=== PATIENT | male | born 1960 | race Caucasian/White ===

== ENCOUNTER 2017-10-22 11:32 | Observation (INO) | payer BC ==
[2017-10-22 12:22] LABS: ABS Basophils 0.1 10^3/ul (0-0.2); ABS Eosinophils 0.2 10^3/ul (0-0.6); ABS Lymphocytes 1.7 10^3/ul (1.0-4.8); ABS Monocytes 0.6 10^3/ul (0-0.8); ABS Neutrophils 3.8 10^3/ul (1.5-7.7); ABS Nucleated RBC 0 10^3/ul; Eosinophil % 3.1 % (0-6); Hematocrit 37 % (42-52); Hemoglobin 12.5 g/dl (14.0-18.0); Lymphocyte % 27.2 % (25-47); Mean Corpuscular HGB Conc 34 g/dl (31-36); Mean Corpuscular Hemoglobin 30 pg (27-31); Mean Corpuscular Volume 89 fL (80-94); Mean Platelet Volume 8 um3 (7.4-10.4); Nucleated Red Blood Cells % 0; Platelet Count 306 10^3/ul (150-450); Red Blood Count 4.13 10^6/ul (4.0-5.4); Red Cell Distribution Width 14 % (10.5-15); White Blood Count 6.4 10^3/ul (3.5-10.8)
[2017-10-22] MEDS ORDERED: Nitroglycerin TAB 0.4 MG* 0.4 MG TAB SL ONE (12:30)
--- NOTE | 2017-10-22 12:50 | RAD ---
Indication: LEFT side chest pain since this morning. Elevated blood pressure. Comparison: June 25, 2014 CT. Technique: Upright AP 1226 hours Report: Lung volumes appear elevated. No pulmonary infiltrate, focal pulmonary lesion, pleural effusion, pneumothorax. Upper normal heart size. Unremarkable central pulmonary vasculature and mediastinal contours. IMPRESSION: Elevated lung volumes suggest potential obstructive lung disease. No acute cardiopulmonary process evident.
[2017-10-22 13:12] LABS: EGFR Non-African American 67.6 (>60)
[2017-10-22 14:03] LABS: Urine Appearance Clear; Urine Blood Negative (Negative); Urine Color Straw; Urine Ketones Negative (Negative); Urine Protein Negative (Negative); Urine Specific Gravity 1.013 (1.010-1.030); Urine Urobilinogen Negative (Negative)
[2017-10-22] MEDS ORDERED: Metoprolol Tartrate IV* 1 MG/ML 5 ML VIAL IV ONE (14:22)
[2017-10-22] MEDS ORDERED: Ondansetron INJ* 2 MG/ML VIAL IV PRN (14:24)
[2017-10-22] MEDS ORDERED: Acetaminophen TAB* 325 MG PO PRN (14:24)
[2017-10-22] MEDS ORDERED: oxyCODONE/Acetamin 10/325(NF) TAB PO PRN (14:27)
--- NOTE | 2017-10-22 15:46 | ED ---
Sandy Salas Nilda, scribed for Amarjit Sparrow MD on 10/22/17 at 1203 . HPI Chest Pain - HPI Summary HPI Summary: This patient is a 56 year old M presenting to [facility] accompanied by with a chief complaint of sudden onset intermittent left CP (pressure) since 929 this morning. Pt states he was doing heavy lifting at work when pain began. The patient rates the current pain 2/10 in severity, but it was initially 7/10. Symptoms aggravated by exertion and alleviated by rest. Patient reports diaphoresis (resolved), but denies dizziness, N/V, and SOB. Pt states he had stress test a few years ago. Medications include Amlodipine 7 mg. Pt states he took 2 tablets ASA today. PMHx includes HTN. - History of Current Complaint Chief Complaint: EDChestPainROMI Time Seen by Provider: 10/22/17 11:47 Hx Obtained From: Patient Onset/Duration: Started Hours Ago, Still Present Time of Onset: 09:30 Timing: Intermittent Current Severity: Moderate Pain Intensity: 7 Pain Scale Used: 0-10 Numeric Chest Pain Location: Left Lateral Chest Pain Radiates: No Character: Pressure/Squeezing Aggravating Factor(s): Exertion Alleviating Factor(s): Rest Associated Signs and Symptoms: Positive: Other: - diaphoresis (resolved), but denies dizziness, N/V, and SOB. - Allergy/Home Medications Allergies/Adverse Reactions: Allergies Allergy/AdvReac Type Severity Reaction Status Date / Time No Known Allergies Allergy Verified 06/25/14 17:31 Home Medications: Home Medications oxyCODONE/Acetamin 10/325(NF) [Percocet 10/325 (NF)] 1 tab PO QID PRN 10/22/17 [ History Confirmed 10/22/17] PMH/Surg Hx/FS Hx/Imm Hx Endocrine/Hematology History: Denies: Hx Diabetes Cardiovascular History: Reports: Hx Angina, Hx Hypertension Denies: Hx Congestive Heart Failure Respiratory History: Denies: Hx Asthma, Hx Chronic Obstructive Pulmonary Disease (COPD) Musculoskeletal History: Reports: Hx Arthritis - L knee Infectious Disease History: No Infectious Disease History: Denies: Traveled Outside the [place] in Last 30 Days - Family History Known Family History: Negative: Cardiac Disease, Hypertension - Social History Occupation: Employed Full-time Lives: With Family Alcohol Use: None Substance Use Type: Reports: None Smoking Status (MU): Never Smoked Tobacco Review of Systems Positive: Skin Diaphoresis - resolved Positive: Chest Pain Negative: Shortness Of Breath Negative: Vomiting, Nausea Neurological: Other - negative dizziness All Other Systems Reviewed And Are Negative: Yes Physical Exam - Summary Physical Exam Summary: VITAL SIGNS: Reviewed. GENERAL: Patient is a well-developed and nourished male who is lying comfortable in the stretcher. Patient is not in any acute respiratory distress. HEAD AND FACE: No signs of trauma. No ecchymosis, hematomas or skull depressions. No sinus tenderness. EYES: PERRLA, EOMI x 2, No injected conjunctiva, no nystagmus. EARS: Hearing grossly intact. Ear canals and tympanic membranes are within normal limits. MOUTH: Oropharynx within normal limits. NECK: Supple, trachea is midline, no adenopathy, no JVD, no carotid bruit, no c- spine tenderness, neck with full ROM. CHEST: Symmetric, no tenderness at palpation LUNGS: Clear to auscultation bilaterally. No wheezing or crackles. CVS: Regular rate and rhythm, S1 and S2 present, no murmurs or gallops appreciated. ABDOMEN: Soft, non-tender. No signs of distention. No rebound no guarding, and no masses palpated. Bowel sounds are normal. EXTREMITIES: FROM in all major joints, no edema, no cyanosis or clubbing. NEURO: Alert and oriented x 3. No acute neurological deficits. Speech is normal and follows commands. SKIN: Dry and warm Triage Information Reviewed: Yes Vital Signs On Initial Exam: Initial Vitals Temp Pulse Resp BP Pulse Ox 99.1 F 89 18 200/113 99 10/22/17 11:35 10/22/17 11:35 10/22/17 11:35 10/22/17 11:35 10/22/17 11:35 Vital Signs Reviewed: Yes Diagnostics - Vital Signs Vital Signs Temp Pulse Resp BP Pulse Ox 10/22/17 11:35 99.1 F 89 18 200/113 99 - Laboratory Lab Results: Lab Results 10/22/17 10/22/17 10/22/17 Range/Units 12:11 12:11 12:11 WBC (3.5-10.8) 10^3/ul RBC (4.0-5.4) 10^6/ul Hgb (14.0-18.0) g/dl Hct (42-52) % MCV (80-94) fL MCH (27-31) pg MCHC (31-36) g/dl RDW (10.5-15) % Plt Count (150-450) 10^3/ul MPV (7.4-10.4) um3 Neut % (Auto) (38-83) % Lymph % (Auto) (25-47) % Major % (Auto) (1-9) % Eos % (Auto) (0-6) % Baso % (Auto) (0-2) % Absolute Neuts (auto) (1.5-7.7) 10^3/ul Absolute Lymphs (auto) (1.0-4.8) 10^3/ul Absolute Monos (auto) (0-0.8) 10^3/ul Absolute Eos (auto) (0-0.6) 10^3/ul Absolute Basos (auto) (0-0.2) 10^3/ul Absolute Nucleated RBC 10^3/ul Nucleated RBC % APTT 32.6 (26.0-36.3) seconds Sodium 139 (133-145) mmol/L Potassium 3.9 (3.5-5.0) mmol/L Chloride 106 (101-111) mmol/L Carbon Dioxide 27 (22-32) mmol/L Anion Gap 6 (2-11) mmol/L BUN 14 (6-24) mg/dL Creatinine 1.12 (0.67-1.17) mg/dL Est GFR ( Amer) 86.9 (>60) Est GFR (Non-Af Amer) 67.6 (>60) BUN/Creatinine Ratio 12.5 (8-20) Glucose 91 (70-100) mg/dL Lactic Acid (0.5-2.0) mmol/L Calcium 9.5 (8.6-10.3) mg/dL Magnesium 2.0 (1.9-2.7) mg/dL Total Bilirubin 0.30 (0.2-1.0) mg/dL AST 20 (13-39) U/L ALT 15 (7-52) U/L Alkaline Phosphatase 45 (34-104) U/L Total Creatine Kinase 217 (10-223) U/L CK-MB (CK-2) 3.5 (0.6-6.3) ng/mL Troponin I 0.01 (<0.04) ng/mL B-Natriuretic Peptide 31 ( - 100) pg/mL Total Protein 7.0 (6.4-8.9) g/dL Albumin 4.5 (3.2-5.2) g/dL Globulin 2.5 (2-4) g/dL Albumin/Globulin Ratio 1.8 (1-3) TSH 0.67 (0.34-5.60) mcIU/mL Thyroxine (T4) Pending 10/22/17 10/22/17 Range/Units 12:11 12:11 WBC 6.4 (3.5-10.8) 10^3/ul RBC 4.13 (4.0-5.4) 10^6/ul Hgb 12.5 L (14.0-18.0) g/dl Hct 37 L (42-52) % MCV 89 (80-94) fL MCH 30 (27-31) pg MCHC 34 (31-36) g/dl RDW 14 (10.5-15) % Plt Count 306 (150-450) 10^3/ul MPV 8 (7.4-10.4) um3 Neut % (Auto) 58.5 (38-83) % Lymph % (Auto) 27.2 (25-47) % Major % (Auto) 10.0 H (1-9) % Eos % (Auto) 3.1 (0-6) % Baso % (Auto) 1.2 (0-2) % Absolute Neuts (auto) 3.8 (1.5-7.7) 10^3/ul Absolute Lymphs (auto) 1.7 (1.0-4.8) 10^3/ul Absolute Monos (auto) 0.6 (0-0.8) 10^3/ul Absolute Eos (auto) 0.2 (0-0.6) 10^3/ul Absolute Basos (auto) 0.1 (0-0.2) 10^3/ul Absolute Nucleated RBC 0 10^3/ul Nucleated RBC % 0 APTT (26.0-36.3) seconds Sodium (133-145) mmol/L Potassium (3.5-5.0) mmol/L Chloride (101-111) mmol/L Carbon Dioxide (22-32) mmol/L Anion Gap (2-11) mmol/L BUN (6-24) mg/dL Creatinine (0.67-1.17) mg/dL Est GFR ( Amer) (>60) Est GFR (Non-Af Amer) (>60) BUN/Creatinine Ratio (8-20) Glucose (70-100) mg/dL Lactic Acid 0.8 (0.5-2.0) mmol/L Calcium (8.6-10.3) mg/dL Magnesium (1.9-2.7) mg/dL Total Bilirubin (0.2-1.0) mg/dL AST (13-39) U/L ALT (7-52) U/L Alkaline Phosphatase (34-104) U/L Total Creatine Kinase (10-223) U/L CK-MB (CK-2) (0.6-6.3) ng/mL Troponin I (<0.04) ng/mL B-Natriuretic Peptide ( - 100) pg/mL Total Protein (6.4-8.9) g/dL Albumin (3.2-5.2) g/dL Globulin (2-4) g/dL Albumin/Globulin Ratio (1-3) TSH (0.34-5.60) mcIU/mL Thyroxine (T4) Result Diagrams: 10/22/17 12:11 10/22/17 12:11 Lab Statement: Any lab studies that have been ordered have been reviewed, and results considered in the medical decision making process. - Radiology CXR Radiology Interpretation Completed By: Radiologist - CXR, per radiologist, reveals elevated lung volumes suggest potential obstructive lung disease. No acute cardiopulmonary process evident. Dr. Sparrow has reviewed this radiology report. - EKG 1137 Cardiac Rate: NL EKG Rhythm: Sinus Rhythm - 83 bpm EKG Interpretation: no ST elevation, nl axis Re-Evaluation - Re-Evaluation First Eval Re-Evaluation Time: 13:39 Comment: Reviewed plan to admit pt. Pt understands and is agreeable to admission. Chest Pain Course/Dx - Course Assessment/Plan: This patient is a 56 year old M presenting to [facility] accompanied by with a chief complaint of sudden onset intermittent left CP (pressure) since 0930 this morning. Pt states he was doing heavy lifting at work when pain began. The patient rates the current pain 2/10 in severity, but it was initially 7/10. Symptoms aggravated by exertion and alleviated by rest. Patient reports diaphoresis (resolved), but denies dizziness, N/V, and SOB. Pt states he had stress test a few years ago. Medications include Amlodipine 7 mg. Pt states he took 2 tablets ASA today. PMHx includes HTN. Pending labs, EKG, and CXR. An EKG reveals NSR 83 bpm, no st elvation, nl axis. CXR, per radiologist, reveals elevated lung volumes suggest potential obstructive lung disease. No acute cardiopulmonary process evident. Dr. Sparrow has reviewed this radiology report. In the ED course an IV access was obtained. Patient was placed in a personnel monitor. Patient was started with IV fluids. Labs without any significant abnormality. Troponin #1: 0.01. EKG shows a NSR w/o ST elevations. CXR impression: No acute pathology. In the ED course he was given NTG and his chest pain resolved. I believe patient has an stable angina since pain is only at exertion. I discuss my physical exam, findings and test results with Dr. Taylor from the hospitalist services and she agrees to admit patient to his services. Patient is hemodynamically stable alert and oriented x 3. - Chest Pain Differential Diagnosis/HQI/PQRI: Acute HI, ACS, Angina, CHF, Chest Wall, GI Disease, Lower Respiratory Infection - Diagnoses Provider Diagnoses: Stable angina - Provider Notifications Discussed Care Of Patient With: Zaynab Taylor - Hospitalist Time Discussed With Above Provider: 13:39 Instructed by Provider To: Admit As Inpatient Discharge - Discharge Plan Condition: Stable Disposition: ADMITTED TO [facility] Referrals: Spike Adler MD [Primary Care Provider] - The documentation as recorded by the Sandy bhatia Nilda accurately reflects the service I personally performed and the decisions made by me, Amarjit Sparrow MD.
[2017-10-22] MEDS: Metoprolol Tartrate TAB* 25 MG PO SCH ×2 (15:47→21:13)
[2017-10-22] MEDS ORDERED: hydrALAZINE IV* 20 MG/ML VIAL IV SLOW PU PRN (15:56)
[2017-10-22] MEDS ORDERED: hydrALAZINE IV* 20 MG/ML VIAL IV SLOW PU ONE (17:49)
--- NOTE | 2017-10-22 20:27 | HP ---
CC: Dr. Adler * HISTORY AND PHYSICAL: DATE OF ADMISSION: 10/22/17 PRIMARY CARE PROVIDER: Dr. Adler. ATTENDING PROVIDER: Dr. Taylor * (DICTATED BY BELLA STEVENS NP) CHIEF COMPLAINT: Chest pain. HISTORY OF PRESENT ILLNESS: Mr. Coronado is a 56-year-old male patient. He has a history primarily of hypertension and arthritis. He comes in to our ER today stating that he was on the job today. 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 When he stopped what he was doing, the pain went away. He did become nauseated and a little short of breath with this. He said he noted similar episode like this 6 months ago. He was concerned though today because the episodes kept coming back and he called his [employer], spoke to his boss, boss said he should come to the ER to be evaluated. The discomfort has gone now. He says he took an aspirin. When he was on his way over with his , he took a nitro here and the discomfort went away. When he got here, he noted that his blood pressure was significantly elevated at 200/113. Because of his symptoms and the fact the chest discomfort is concerning for acute coronary syndrome, we were asked to evaluate for admission. PAST MEDICAL HISTORY: Significant for: 1. Hypertension. 2. Arthritis. PAST SURGICAL HISTORY: He has had a surgery in his testicle as a child for undescended testicle. That is the only surgery. MEDICATIONS: Home meds according to him, he is on: 1. Amlodipine 7.5 mg daily. 2. He also is taking Percocet 10/325 one tablet p.o. four times a day as needed. 3. Motrin 800 mg p.o. t.i.d. as needed. ALLERGIES TO MEDICATIONS: Include no known drug allergies. FAMILY HISTORY: Mother had a history of lung cancer. He is unsure of his father's history as he was adopted. He thinks he may have had heart disease, but unclear. SOCIAL HISTORY: He does not smoke. He does smoke marijuana. He does chew tobacco. Does not drink alcohol. He works in construction. Surrogate decision maker is his . REVIEW OF SYSTEMS: There is no documented fever. The patient denied having any significant weight change. There was no double vision. He denies having any ear discharge. No rhinorrhea. No sore throat. No thyroid enlargement. Denies having any chest pain. There is no orthopnea, no nocturnal dyspnea. There was no abdominal pain. No nausea, no vomiting. There is no dysuria, no frequency. No seizure, no loss of consciousness. No pruritus and no skin ulcerations. Review of 14 systems completed, all others negative. PHYSICAL EXAMINATION GENERAL: At this time, Mr. Coronado is a 56-year-old male patient. He is sitting in the ED stretcher. He does not appear to be in any acute distress. VITAL SIGNS: Blood pressure now /99, pulse 73, respirations 15, O2 sat 99% , temperature 99.1. HEENT: Head: Atraumatic. Eyes: EOMs are intact. Sclerae anicteric, not pale. Throat: Oral mucosa appears to be moist. No oropharyngeal erythema. NECK: Supple. LUNGS: Clear to auscultation bilaterally. No wheezes, rales, or rhonchi. HEART: Sounds S1, S2. Regular rate and rhythm. No murmurs, rubs, or gallops. ABDOMEN: Soft, flat, nontender. Bowel sounds are present. EXTREMITIES: Pulses were 2+ throughout. He is moving all 4 extremities with 5/ 5 strength. NEUROLOGIC: The patient is awake, he is alert, he is oriented x3. Tongue is midline. Language Instructor were equal. He had no gross focal deficits. SKIN: Grossly intact. DIAGNOSTIC STUDIES/LAB DATA: WBC 6.4, RBC of 4.13, hemoglobin 12.5, hematocrit 37, platelet count 306. PTT of 32.6. Sodium was 139, potassium 3.9 , chloride of 106, bicarb 27, BUN 14, creatinine 1.12, glucose 91, lactate 0.8, calcium 9.5, mag 2.0. Total bili 0.3, AST 20, ALT 15, alk phos 45. CK 217, CK- MB 3.5. Troponin 0.01. BNP of 31. Albumin of 4.5. TSH was normal. He did have a chest x-ray obtained today. Impression: Elevated lung volumes suggest potential obstructive lung disease. No acute cardiopulmonary process evident. He did have an EKG obtained today as well, which read as normal sinus rhythm, rate at 83, no ST elevations or T-wave inversions. Old medical records were reviewed. ASSESSMENT AND PLAN: Mr. Coronado is a 56-year-old male patient coming in to the ED today with complaints of chest discomfort concerning for acute coronary syndrome. He will be admitted under observation status for: 1. Chest pain. At this point, the patient will be placed on aspirin, beta mason. I am holding on statin. We will get a lipid panel in the morning. He is not having any chest pain currently. Should his troponins go up and he has continued chest pain, I certainly will get Cardiology consult, add heparin, and probably we will him on high-dose statin. We will follow him closely for this. Trend the troponins. I did order a stress test. 2. Hypertension. His hypertension could be contributing to the chest discomfort. I will go ahead and give him 5 of IV Lopressor x1 now, then 25 Lopressor b.i.d. and increase his amlodipine to 10 mg daily. We need to be careful with this, as he has had syncope in the past. According to the patient , it was attributed to him being on too much blood pressure meds, but at this point, he certainly does need to be a little better controlled as his blood pressure here has been running 170s, 160s systolic and diastolics have been high in the 100s. 3. Arthritis. Continue p.r.n. Percocet. 4. DVT prophylaxis. He will be placed on heparin subcu. 5. Code status. Full code. 6. Fluids, electrolytes, and nutrition. Heart heathy diet. N.p.o. after midnight. TIME SPENT: On admission 60 minutes, greater than half of the time spent face- to- face with the patient obtaining my history and physical, the other half of the time was spent going over the plan of care with the patient and implementing the plan of care. I did discuss the plan of care with my attending, Dr. Taylor; she is in agreement. BELLA STEVENS, VALERIANO [id number]/[facility] #: [id number] DARRYL
[2017-10-22] MEDS: Heparin VIAL(*) 5000 UNITS/ML VIAL (FIVE THOUSAND) SUBCUT SCH (21:13)
[2017-10-23] MEDS: Heparin VIAL(*) 5000 UNITS/ML VIAL (FIVE THOUSAND) SUBCUT SCH ×2 (05:01→14:52)
[2017-10-23 06:00] LABS: ABS Basophils 0.1 10^3/ul (0-0.2); ABS Eosinophils 0.4 10^3/ul (0-0.6); ABS Lymphocytes 1.7 10^3/ul (1.0-4.8); ABS Monocytes 0.6 10^3/ul (0-0.8); ABS Neutrophils 3.3 10^3/ul (1.5-7.7); ABS Nucleated RBC 0 10^3/ul; Hematocrit 40 % (42-52); Hemoglobin 13.8 g/dl (14.0-18.0); Lymphocyte % 27.7 % (25-47); Mean Corpuscular HGB Conc 35 g/dl (31-36); Mean Corpuscular Hemoglobin 31 pg (27-31); Mean Corpuscular Volume 88 fL (80-94); Mean Platelet Volume 8 um3 (7.4-10.4); Nucleated Red Blood Cells % 0; Platelet Count 318 10^3/ul (150-450); Red Blood Count 4.53 10^6/ul (4.0-5.4); Red Cell Distribution Width 14 % (10.5-15)
[2017-10-23 06:11] LABS: EGFR Non-African American 75.3 (>60)
[2017-10-23 07:49] VITALS: BP 150/90
[2017-10-23] MEDS ORDERED: Aspirin EC Low Dose* 81 MG TAB.EC PO SCH (09:00)
[2017-10-23] MEDS ORDERED: amLODIPine TAB* 5 MG PO SCH (09:00)
[2017-10-23] MEDS ORDERED: Regadenoson* 0.4 MG/5 ML SYRINGE ONE (09:37)
[2017-10-23] MEDS: Metoprolol Tartrate TAB* 25 MG PO SCH (10:15)
--- NOTE | 2017-10-23 10:15 | RAD ---
Edited for charges. INDICATION: Chest pain, shortness of breath, hypertension, family history of heart disease. COMPARISON: June 26, 2014 TECHNIQUE: 10.770 mCi of Tc-99m Myoview were administered IV. SPECT images of the heart were obtained. Later on the same day. Under the direction of Dr. Carver, the patient was given an IV injection of a pharmacologic stress agent. Subsequently, the patient was given an IV injection of 25.300 mCi Tc-99m Myoview. SPECT images of the heart were obtained and a gated wall motion study was performed. FINDINGS: Gated wall motion images were obtained at stress and demonstrate global hypokinesia most prominent at the septum and with relative sparing of the anterior wall. The calculated left ventricular ejection fraction is 41 % at stress. Estimated LEFT ventricular end diastolic volume is 159 mL. TID 0.96. Based on review of the attenuation corrected and non corrected images there is no compelling suspicious fixed or reversible myocardial perfusion defect. Thinning at the cardiac apex noted at stress and rest. IMPRESSION: 1. No compelling stress-induced reversible perfusion defects to indicate ischemia or evidence for an infarct. 2. Dilated LEFT ventricle with estimated LEFT ventricular end-diastolic volume of 159 mL. Global hypokinesia with estimated LEFT ventricular ejection fraction of 41% at stress. ASSESSMENT: Intermediate risk based on nuclear portion. Based on imaging criteria from ACC/AHA 2002 Guideline Update for the Management of Patients With Chronic Stable Angina Table 23. Noninvasive Risk Stratification. MTDD
--- NOTE | 2017-10-23 14:01 | ECHO ---
Patient: KRZYSZTOF BELLA [facility] Rec#: [id number] : 1960 Date: 10/23/2017 Age: 56y Height: 177.8 cm / 70.0 in Weight: 93.44 kg / 205.9 lbs Sex: M BSA: 2.11 Room#: 444 Admit Date#: 10/22/2017 Type: Inpatient Referring: Gilberto Chew MD Reading: Edu Larry DO Furniture Fabricator: Marysol Mar,RDCS,RDMS CC: Spike Adler MD Transthoracic Echocardiogram Indication: CP, HTN BP: 150/90 HR: 64 Rhythm: NSR Findings History: HTN Technical Comments: The study quality is good. Left Ventricle: The left ventricular chamber size is normal. Mild concentric left ventricular hypertrophy is observed. Basal interventricular septum shows moderate thickening. Global left ventricular wall motion and contractility are within normal limits. There is normal left ventricular systolic function. The estimated ejection fraction is 55-60%. Abnormal left ventricular diastolic filling is observed, consistent with impaired relaxation. Left Atrium: The left atrium is mildly dilated. Right Ventricle: The right ventricular chamber size and systolic function are within normal limits. Right Atrium: The right atrial cavity size is normal. Aortic Valve: The aortic valve is trileaflet. The aortic valve leaflets are mildly thickened. There is no evidence of aortic regurgitation. There is no evidence of aortic stenosis. Mitral Valve: The mitral valve leaflets appear normal. There is a trace of mitral regurgitation. There is no evidence of mitral stenosis. Tricuspid Valve: The tricuspid valve leaflets are normal. There is trace tricuspid regurgitation. No pulmonary hypertension is noted. Pulmonic Valve: There is no evidence of pulmonic valve thickening. There is no evidence of pulmonic regurgitation. There is no pulmonic stenosis. Pericardium: There is no significant pericardial effusion. Aorta: There is mild dilatation of the ascending aorta. There is mild dilatation of the aortic root. Pulmonary Artery: The main pulmonary artery is not well visualized. Venous: The inferior vena cava is dilated. There is a greater than 50% respiratory change in the inferior vena cava dimension. Conclusions The left ventricular chamber size is normal. Mild concentric left ventricular hypertrophy is observed with moderate thickening of the basal septum. Global left ventricular wall motion and contractility are within normal limits. There is normal left ventricular systolic function. The estimated ejection fraction is 55-60%. The left atrium is mildly dilated. The right ventricular chamber size and systolic function are within normal limits. No significant valvular abnormalities noted. There is mild dilatation of the aortic root and ascending aorta. Compared to prior study from 05/2014, no significant changes noted Measurements Name Value Normal Range RVIDd (AP) 2D 3.3 cm (0.9 - 2.6) RVDdMajor (2D) 3.8 cm (2.2 - 4.4) RAd ISD 4CH 4.9 cm (3.4 - 4.9) RA (A4C)W 4.3 cm (2.9 - 4.6) IVSd (2D) 1.4 cm (0.6 - 1) LVPWd (2D) 1.3 cm (0.6 - 1) LVIDd (2D) 4.9 cm (3.6 - 5.4) LVIDs (2D) 3.3 cm - LV FS (2D) 32 % (25 - 45) Aortic Annulus 2.8 cm (1.4 - 2.6) Ao root diameter (2D) 3.9 cm (2.1 - 3.5) Ascending Ao 3.9 cm (2.1 - 3.4) Aortic arch 3.2 cm (1.8 - 3.4) LA dimension (AP) 2D 4.7 cm (2.3 - 3.8) LAd ISD 4CH 5.8 cm (2.9 - 5.3) LA ISD 4CH W 5.1 cm (2.5 - 4.5) Name Value Normal Range LA ESV SP 4CH (A/L) 65.9 ml - LA ESV SP 2CH (A/L) 62.32 ml - LA ESV BP (A/L) 66.63 ml - LA ESV BP (A/L) index 31 ml/m2 - LA ESV SP 4CH (MOD) 60.55 ml - LA ESV SP 2CH (MOD) 57.56 ml - LV EDV SP 4CH (MOD) 139.41 ml - LV ESV SP 4CH (MOD) 47.79 ml - EF SP 4CH (MOD) 65.72 % - LV EDV SP 2CH (MOD) 141.63 ml - LV ESV SP 2CH (MOD) 74.83 ml - EF SP 2CH (MOD) 47.16 % - LV EDV BP 140.81 ml - LV ESV BP 59.62 ml - BP EF (MOD) 58 % - Name Value Normal Range MV E-wave Vmax 0.4 m/sec - MV deceleration time 235 msec - MV A-wave Vmax 0.7 m/sec - MV E:A ratio 0.6 ratio - LV septal e' Vmax 0.05 m/sec - LV lateral e' Vmax 0.06 m/sec - LV E:e' septal ratio 8 ratio - LV E:e' lateral ratio 7 ratio - Name Value Normal Range AV Vmax 1.2 m/sec - AV VTI 26.5 cm - AV peak gradient 6 mmHg - AV mean gradient 3.33 mmHg - LVOT Vmax 0.7 m/sec - LVOT VTI 15 cm - LVOT peak gradient 2 mmHg - LVOT mean gradient 1 mmHg - COLUMBA Vmax 0.7 m/sec - Name Value Normal Range TR Vmax 2.1 m/sec - TR peak gradient 18 mmHg - RAP 3 mmHg - RVSP 21 mmHg - IVC diameter 2.3 cm - Name Value Normal Range PV Vmax 0.6 m/sec - PV peak gradient 1.4 mmHg -
--- NOTE | 2017-10-25 11:02 | DS ---
CC: Dr. Adler * DISCHARGE SUMMARY: DATE OF ADMISSION: 10/22/17 DATE OF DISCHARGE: 10/23/17 PRIMARY CARE PROVIDER: Dr. Adler. MY ATTENDING WHILE IN THE HOSPITAL: Dr. Litzy Garrido.* (DICTATED BY JOHN BENJAMIN) PRIMARY DISCHARGE DIAGNOSIS: Chest pain. SECONDARY DISCHARGE DIAGNOSES: 1. Hypertension. 2. Arthritis. STUDIES DONE WHILE IN THE HOSPITAL: Chest x-ray from 10/22/17 read as elevated lung volumes suggest potential obstructive lung disease, no acute cardiopulmonary process evident. Electrocardiogram from 10/22/[address] segment changes, early repolarization in V2 and V3, possible left atrial enlargement. No signs of hypertrophy, QTc of 439, left axis deviation, no other abnormalities. EKG from 10/23/17 shows no significant changes from previous exam. Nuclear medicine scan from 10/23/17 read as no compelling stress induced or reversible perfusion defects indicative of ischemia or evidence of infarct, dilated left ventricle with estimated left ventricular end-diastolic volume of 159ml, global hypokinesis with estimated left ventricular ejection fraction of 41% in stress, intermediate risk based on nuclear portion. Transthoracic echocardiogram from 10/23/17 read as left ventricular chamber size normal, mild concentric left ventricular hypertrophy is observed with moderate thickening at the basal septum, left ventricular wall motion and contractility within normal limits. There is normal left ventricular systolic function, estimated ejection fraction is 55% to 60%. Left atrium is mildly dilated. The right ventricular chamber size and systolic function within normal limits. No significant valvular abnormalities noted. There is mild dilatation of the aortic root and ascending aorta. No changes from previous study. MEDICATIONS: 1. Amlodipine 7.5 mg p.o. daily. 2. Ibuprofen 800 mg p.o. t.i.d. as needed. 3. Percocet 1 tab p.o. four times a day as needed. 4. Tylenol 650 mg p.o. q.4 hours as needed. 5. Aspirin 81 mg p.o. daily. 6. Metoprolol tartrate 25 mg p.o. b.i.d. New medications at discharge: 1. Aspirin. 2. Metoprolol. 3. Tylenol. Medications discontinued at discharge: None. HOSPITAL COURSE: This is a brief summary of the patient's presentation. For more details, please see the history and physical from [place] NP, on . In brief, the patient is a 56-year-old male with a past medical history significant for the above, who presented to the ED, where he was lifting weight and exerting himself and had chest pressure and tightness coming on with exertion, but went away when he stopped exercise. The patient did become nauseated and short of breath. The patient had similar episode 6 months ago. The patient came to the emergency department, treated with aspirin and nitro and the pain went away. The patient's blood pressure was significantly elevated at 200/113. The patient was evaluated for admission. The patient had no events overnight, no recurrence of chest pain. The patient went to stress test which was read as the above. Cardiology was consulted and they stated that ejection fractions read on nuclear medicine stress test are not reliable and requested an echocardiogram. Echocardiogram was performed, which was read as above. The patient's blood pressure while he was in the hospital started out at 200/113 and decreased to 150/90 at discharge with the addition of metoprolol. The patient was previously on higher dose of amlodipine, but it was stopped due to dizziness and presumed hypotension. Results of the echo were discussed with Cardiology and they stated that the patient's most important cardiac risk factor reduction will be in reduction of his blood pressure. This was conveyed to the patient and the patient was amenable to following up with his primary care doctor and as well as the addition of the metoprolol and the aspirin to his daily medication regimen. The patient had troponin I at 0.01 x3. The patient has no elevated BNP. The patient had LDL cholesterol of 93. The patient had no other laboratory abnormalities during his stay except for hemoglobin of 12.5. PHYSICAL EXAMINATION ON THE DAY OF DISCHARGE: General: The patient is a 56- year- old male, who appears stated age, sitting comfortably in bed, in no acute distress. Vital Signs: Temperature 97.2, heart rate 51, respiratory rate 16, oxygen saturation 100% on room air, blood pressure 150/90. HEENT: Head normocephalic, atraumatic. Sclerae anicteric. No conjunctival injection. Nasal mucosa is moist. Oral mucosa moist. No pharyngeal erythema. No exudates or discharge. Neck: Supple, nontender, no lymphadenopathy. No carotid bruit auscultated. Cardiac: Regular rate and rhythm. No clicks, murmurs, gallops, or rubs. Pulses 2+ in bilateral dorsalis pedis, posterior tibialis, and radial areas. No lower extremity edema noted. Respiratory: Clear to auscultation bilaterally. No wheezes, rales, or rhonchi. Good air exchange bilaterally. Abdomen: Soft, nontender, nondistended. Bowel sounds present and normoactive in all 4 quadrants. No hepatosplenomegaly. No abdominal bruits auscultated. Genitourinary: No suprapubic tenderness or CVA tenderness. Skin: Clean, dry, and intact. No rash. Neuro: Cranial nerves II through XII grossly intact. No focal deficits. Psychiatric: Pleasant and cooperative. LABORATORY DATA ON THE DAY OF DISCHARGE: White blood cell count of 6.0, hemoglobin 13.8, MCH 31, platelet count 318. Sodium 136, potassium 3.9, chloride 106, carbon dioxide 25, anion gap 5, BUN 11, creatinine 1.02, glucose 100, hemoglobin A1c 5.3, calcium 9.3. Troponin I 0.01 x3. Triglycerides 100, cholesterol 161, LDL cholesterol 93, HDL cholesterol 48.3. TSH 0.67, thyroxine 6.95. Urine benign. DISCHARGE PLAN: The patient will be discharged to home. The patient was instructed on the importance of reducing his risk factors for PR including decreasing his blood pressure, dietary reduction of his cholesterol, reducing his stress level, and taking a daily aspirin. The patient should follow with his primary care provider to address all of this. The patient should also follow up with Cardiology for more assiduous monitoring of cardiac risk factors. The patient will return to the hospital for recurrent chest pain, shortness of breath, or other alarming symptoms. The patient should engage in activity as tolerated, avoiding all the activity that previously provoked his chest pain. The patient should have a heart-healthy diet without caffeine. TIME SPENT: Approximately 60 minutes was spent on this discharge, 30 of which was spent [id number] with the patient obtaining history and physical and discussing treatment plan. JOHN BENJAMIN [id number]/[facility] #: [id number] DARRYL
== END 2017-10-23 15:00 | disposition home or self-care (01) ==
LOC: ED 11:32 → MEDTELE 13:40 → INTOOBSV 13:40
PROVIDERS: ADMIT Internal Medicine; ATTEND Internal Medicine
DX: R07.9 Chest pain, unspecified (principal); Z86.79 Personal history of other diseases of the circulatory system; I10 Essential (primary) hypertension; M19.90 Unspecified osteoarthritis, unspecified site; Z79.82 Long term (current) use of aspirin
CPT/HCPCS: 36415; 71045; 78452; 80048; 80053; 80061; 81003; 82550; 82553; 83036; 83605; 83735; 83880; 84436; 84443; 84484; 85025; 85730; 93005; 93017; 93306; 96374; 96375; 99285; A9270-GY; A9502; G0378; J0360; J1644; J2785; J3490

== ENCOUNTER 2020-03-21 13:47 | Inpatient (IN) ==
[2020-03-21] MEDS ORDERED: NS 0.9% 1000 ml BAG 1,000 ML IV ONE (13:51)
[2020-03-21] MEDS ORDERED: Iodixanol (CONTRAST) 320 MG/ML 100 ML SDV IV ONE (14:02)
[2020-03-21 14:21] LABS: ABS Basophils 0.1 10^3/ul (0-0.2); ABS Eosinophils 0.1 10^3/ul (0-0.6); ABS Lymphocytes 1.7 10^3/ul (1.0-4.8); ABS Monocytes 0.8 10^3/ul (0-0.8); Eosinophil % 1.4 %; Hematocrit 41 % (42-52); Hemoglobin 14.1 g/dL (14.0-18.0); Lymphocyte % 20.1 %; Mean Corpuscular HGB Conc 34 g/dL (31-36); Mean Corpuscular Hemoglobin 30 pg (27-31); Mean Corpuscular Volume 87 fL (80-94); Mean Platelet Volume 7.7 fL (7.4-10.4); Nucleated Red Blood Cells % 0.1; Platelet Count 363 10^3/uL (150-450); Red Cell Distribution Width 15 % (10-15); White Blood Count 8.7 10^3/uL (3.5-10.8)
[2020-03-21 14:29] LABS: Activated Partial Thrombo Time 32.7 seconds (26.0-38.0); INR 1.02 (0.82-1.09)
[2020-03-21 14:58] LABS: Urine Appearance Clear; Urine Bilirubin Negative (Negative); Urine Blood Negative (Negative); Urine Color Yellow; Urine Glucose Negative (Negative); Urine Ketones Negative (Negative); Urine Nitrite Negative (Negative); Urine Protein Negative (Negative); Urine Specific Gravity 1.043 (1.010-1.030); Urine Urobilinogen Negative (Negative)
[2020-03-21 15:02] LABS: Troponin I 0.37 ng/mL (<0.03)
[2020-03-21 15:07] LABS: ALT 23 U/L (7-52); AST 21 U/L (13-39); Albumin 4.5 g/dL (3.2-5.2); Albumin/Globulin Ratio 1.6 (1-3); Alkaline Phosphatase 49 U/L (34-104); Anion Gap 7 mmol/L (2-11); BUN/Creatinine Ratio 11.3 (8-20); Blood Urea Nitrogen 15 mg/dL (6-24); CO2 Carbon Dioxide 24 mmol/L (22-32); Calcium 9.8 mg/dL (8.6-10.3); Chloride 107 mmol/L (101-111); Cholesterol 195 mg/dL; EGFR African American 66.4 (>60); EGFR Non-African American 54.8 (>60); Globulin 2.9 g/dL (2-4); Glucose 116 mg/dL (70-100); HDL Cholesterol 50.3 mg/dL; LDL Cholesterol 115 mg/dL; Potassium 3.8 mmol/L (3.5-5.0); Sodium 138 mmol/L (135-145); Total Protein 7.4 g/dL (6.4-8.9); Triglycerides 147 mg/dL
[2020-03-21 16:46] LABS: TSH (Thyroid Stimulating Horm) 1.77 mcIU/mL (0.34-5.60)
[2020-03-21] MEDS ORDERED: Enoxaparin 40 MG/0.4 ML SYR(*) SUBCUT SCH (18:00)
[2020-03-21 18:11] LABS: Troponin I 0.35 ng/mL (<0.03)
[2020-03-21] MEDS: hydrALAZINE 20 mg/ml 1 ML Vial IV IV SLOW PU PRN (21:35)
[2020-03-21 21:49] LABS: Troponin I 0.33 ng/mL (<0.03)
[2020-03-21] MEDS ORDERED: hydrALAZINE 20 mg/ml 1 ML Vial IV IV SLOW PU ONE (23:11)
[2020-03-22 06:43] LABS: ABS Basophils 0.1 10^3/ul (0-0.2); ABS Eosinophils 0.2 10^3/ul (0-0.6); ABS Lymphocytes 1.8 10^3/ul (1.0-4.8); ABS Monocytes 0.7 10^3/ul (0-0.8); Eosinophil % 3.3 %; Hematocrit 39 % (42-52); Hemoglobin 13.3 g/dL (14.0-18.0); Mean Corpuscular HGB Conc 35 g/dL (31-36); Mean Corpuscular Hemoglobin 30 pg (27-31); Mean Corpuscular Volume 87 fL (80-94); Mean Platelet Volume 8.3 fL (7.4-10.4); Nucleated Red Blood Cells % 0.1; Platelet Count 343 10^3/uL (150-450); Red Blood Count 4.45 10^6 /uL (4.18-5.48); Red Cell Distribution Width 15 % (10-15); White Blood Count 6.9 10^3/uL (3.5-10.8)
[2020-03-22 06:57] LABS: Anion Gap 8 mmol/L (2-11); BUN/Creatinine Ratio 11.3 (8-20); Blood Urea Nitrogen 12 mg/dL (6-24); CO2 Carbon Dioxide 21 mmol/L (22-32); Calcium 9.4 mg/dL (8.6-10.3); Chloride 107 mmol/L (101-111); EGFR African American 86.2 (>60); EGFR Non-African American 71.3 (>60); Glucose 91 mg/dL (70-100); Potassium 3.3 mmol/L (3.5-5.0); Sodium 136 mmol/L (135-145)
[2020-03-22 07:16] LABS: Troponin I 0.26 ng/mL (<0.03)
[2020-03-22] MEDS ORDERED: Potassium Chlor 10 meq TAB PO ONE (09:25)
[2020-03-22 09:49] LABS: Magnesium 1.8 mg/dL (1.9-2.7)
[2020-03-22] MEDS: hydrALAZINE 20 mg/ml 1 ML Vial IV IV SLOW PU PRN (11:25)
[2020-03-22] MEDS ORDERED: hydrALAZINE 20 mg/ml 1 ML Vial IV IV SLOW PU PRN (11:27)
[2020-03-22] MEDS ORDERED: hydrALAZINE 20 mg/ml 1 ML Vial IV IV SLOW PU ONE (11:29)
[2020-03-22] MEDS ORDERED: Magnesium Sulfate IV 1GM/100ML 1 GM/100 ML BAG IV ONE ×2 (11:29→15:06)
[2020-03-22] MEDS ORDERED: Iohexol 350 (CONTRAST) 500 ML MDV IV ONE (20:32)
[2020-03-23 06:40] LABS: BUN/Creatinine Ratio 11.9 (8-20); Calcium 9.7 mg/dL (8.6-10.3); EGFR African American 65.2 (>60); EGFR Non-African American 53.9 (>60); Magnesium 2.2 mg/dL (1.9-2.7); Potassium 3.7 mmol/L (3.5-5.0)
[2020-03-23] MEDS ORDERED: fentaNYL 100 mcg/2 ml 50 MCG/ML VIAL ONE (14:31)
[2020-03-23] MEDS ORDERED: Naloxone 0.4 mg VIAL 0.4 mg/ml 1 ml VIAL ONE (14:31)
[2020-03-23] MEDS ORDERED: Flumazenil 0.5 mg/5 ml 0.1 MG/ML 5 ml VIAL ONE (14:31)
[2020-03-23] MEDS ORDERED: Midazolam 5 mg/5 ml VIAL 1 mg/ml 5 ml VIAL (5 mg) ONE (14:31)
[2020-03-23 20:16] VITALS: BP 168/110
== END 2020-03-23 20:00 | disposition home or self-care (01) | DRG 45 ==
LOC: ED 13:47 → MEDTELE 13:47
PROVIDERS: ADMIT Internal Medicine; ATTEND Internal Medicine